=== PATIENT | female | born 1950 | race Caucasian/White ===

== ENCOUNTER 2016-12-06 12:55 | Day surgery (SDC) | payer MEDICARE ==
[~2016-12-06 12:55] MED LIST: ALL220TA PO; ASPI325T PO; AUGM875T PO; CHOL1CAP6 PO; FISH120014 PO; IBUP200T PO; METO50CR PO
[2016-12-06] MEDS ORDERED: IOHEXOL 350 MG/ML 50 ML BTL (for RAD DIAG) IVCONTRAST ONE (12:56)
[2016-12-06] MEDS ORDERED: VENL75TA PO (13:18)
[2016-12-06] MEDS ORDERED: METO50TA PO (13:18)
[2016-12-06 13:30] VITALS: BP 132/86; PULSE 78; RESP 18; TEMP 98.7; O2SAT 96
--- NOTE | 2016-12-06 14:52 | PD.RAD ---
Post Procedure Progress Note Pre Procedure Diagnosis: (1) Malignancy Post Procedure Diagnosis: (1) Malignancy Procedure Date: Dec 06, 2016 Supervising Radiologist: Rinku Smith Proceduralist/Assist: Jolie Larson, RT(R)(), Priscila Rider RT(R) Anesthesia: Local Plan of Activity Patient to Unit: ROPU Patient Condition: Good See PACS Report for procedural detail/treatment Central Venous Access Device Procedure 1 Right Infusaport Evaluation (fibrins sheath present TPA to be infused) Rinku Smith MD Dec 06, 2016 14:52
[2016-12-06] MEDS ORDERED: ALTEPLASE RECOMBINANT 2 MG VIAL IV ONE (15:15)
--- NOTE | 2016-12-06 15:30 | RADRPT ---
EXAM DATE/TIME: 12/06/2016 14:15 [place] COMPARISON: No previous studies available for comparison. INDICATIONS : Patient with a history of ovarian mass, needs infusaport evaluated. MEDICAL HISTORY : HTN SURGICAL HISTORY : Biopsy ENCOUNTER: Subsequent ACUITY: > 1 year PAIN SCORE: 0/10 FLUORO TIME: 0.31 minutes IMAGE SERIES: 1 CONTRAST: 10 cc Omnipaque (iohexol) 350 DEVICE(S): 1.) 8 Sami single lumen Power port PROCEDURE : 1. Access of [id number]. 2. Port patency injection. The risks, benefits and alternatives to the procedure were explained and verbal and written consent w as obtained. The patient was placed supine. The port was prepped in sterile fashion. Full sterile t echnique was used, including cap, mask, sterile gloves and gown, and a large sterile sheet. Hand hyg iene and 2% chlorhexidine prep was utilized per protocol for cutaneous antisepsis with appropriate dr y time for site. The previously placed port was accessed and positive contrast was injected for evaluation. Injection demonstrates a fibrin sheath is present with an intraluminal position of the catheter. TPA infusion is to be performed. CONCLUSION: 1. Fibrin sheath as above. Rinku Smith MD on December 06, 2016 at 15:29 Board Certified Radiologist. This report was verified electronically.
== END 2016-12-06 17:20 | disposition home or self-care (01) ==
LOC: HRIP 12:55 → HROP 12:55
PROVIDERS: ATTEND Obstetrics & Gynecology Gynecologic Oncology
DX: Z45.2 Encounter for adjustment and management of vascular access device (principal); I10 Essential (primary) hypertension; C56.9 Malignant neoplasm of unspecified ovary
CPT/HCPCS: 36598; 96365; 96366; J2997; Q9967